=== PATIENT | male | born 1950 | race Caucasian/White ===

== ENCOUNTER 2018-04-10 10:38 | Emergency (ER) | payer OTHER ==
[2018-04-10 10:44] VITALS: BMI 29.6
[2018-04-10 10:47] VITALS: RESP 18
[2018-04-10] MEDS ORDERED: Albuterol-Ipratrop 3 mg / 0.5 (3 ml) UD ONE (10:58)
[2018-04-10] MEDS ORDERED: Moxifloxacin IV 400mg/250ml NS 400 MG/250 ML BAG IV STA (11:11)
[2018-04-10] MEDS ORDERED: Sodium Chloride 0.9% 1,000 ML IV ONE (11:11)
--- NOTE | 2018-04-10 11:11 | C.PDOC ---
History Of Present Illness 68 year old male presents to the ED for evaluation of worsening productive cough, congestion, fever (subjective), and shortness of breath for 1 week. Patient reports his symptoms are worse at night and general malaise. Admits to completing a Z-brandon on 03/30/18 but symptoms still persist. Denies chills, nausea, vomiting, diarrhea, abdominal pain, and any other associated symptoms. WORSENING COUGH X 1 WEEK. S/P ZPAK COMPLETED 04/09 BUT STILL PERSIST SX. +PROD COUGH, CHEST HERMELINDA, SOB WORSE @ NIGHT. +SUBJ FEVER. NO NV. +GEN MALAISE EXAM MOD DIST NONTOXIC S/P NEB HEENT NEG LUNGS B/L RHONCHI TO MID BASE +RETRACTION SPEAKING FULL SENTENCES CV IRREG REG NO EDEMA REMAINDER NEG Time Seen by Provider: 04/10/18 10:52 Chief Complaint (Nursing): Cough, Cold, Congestion History Per: Patient History/Exam Limitations: no limitations Onset/Duration Of Symptoms: Days Current Symptoms Are (Timing): Still Present Past Medical History Reviewed: Historical Data, Nursing Documentation, Vital Signs Vital Signs: Last Vital Signs Temp 99.6 F 04/10/18 10:44 Pulse 96 H 04/10/18 10:44 Resp 18 04/10/18 10:44 BP 110/69 04/10/18 10:44 Pulse Ox 93 L 04/10/18 10:44 - Medical History PMH: Diabetes, HTN, Hypercholesterolemia - [facility] Procedures SUTURE EXT EAR LAC (05/31/14) TETANUS TOXOID ADMINIST (05/31/14) Family History: States: Unknown Family Hx - Social History Hx Tobacco Use: No Hx Alcohol Use: No Hx Substance Use: No - Immunization History Hx Tetanus Toxoid Vaccination: Yes (05/31/2014) Hx Influenza Vaccination: Yes Hx Pneumococcal Vaccination: No Review Of Systems Except As Marked, All Systems Reviewed And Found Negative. Constitutional: Positive for: Fever (subjective.). Negative for: Chills ENT: Positive for: Nose Congestion Respiratory: Positive for: Cough (productive.), Shortness of Breath Gastrointestinal: Negative for: Nausea, Vomiting, Abdominal Pain, Diarrhea Physical Exam - Physical Exam Appears: Non-toxic, Other (moderate distress.) Skin: Normal Color, Warm, Dry Head: Atraumatic, Normacephalic Eye(s): bilateral: Normal Inspection Oral Mucosa: Moist Throat: Normal, No Erythema Neck: Normal ROM, Supple Chest: Symmetrical, No Deformity Cardiovascular: Murmur, Other (CV: irregular regular. ) Respiratory: Accessory Muscle Use, No Rales, Rhonchi (bilateral to the mid base.), No Wheezing Gastrointestinal/Abdominal: Normal Exam, Soft, No Tenderness Extremity: No Pedal Edema Neurological/Psych: Oriented x3, Normal Speech, Other (speaking full sentences.) ED Course And Treatment - Laboratory Results Result Diagrams: 04/10/18 11:31 04/10/18 11:31 ECG: Interpreted By Me ECG Rhythm: Sinus Rhythm Interpretation Of ECG: CHANGED FROM 05/2017. sinus rhythm. right bundle. Rate: 87 bpm Rate From EC O2 Sat by Pulse Oximetry: 93 (nasal canula) Pulse Ox Interpretation: Abnormal - Other Rad CXR X-Ray: Viewed By Me, Read By Radiologist Interpretation: FINDINGS: LINES AND TUBES: None. LUNG AND PLEURA: The lungs are well inflated and clear. No pleural effusion or pneumothorax. HEART AND MEDIASTINUM: The heart is not enlarged. Atherosclerotic aortic arch calcific ations are present. The hilar and mediastinal contours are within normal limits. SKELETAL STRUCTURES: The bony structures are within normal limits for the patient's age. VISUALIZED UPPER ABDOMEN: Normal. OTHER FINDINGS: None. IMPRESSION: No active pulmonary disease. Progress - Re-Evaluation Re-evaluation Note: 04/10/18 12:19 SP NEB PS FEELS MUCH BETTER, DOES NOT WANT ADMISSION. ABX IN PROGRESS - Data Reviewed Data Reviewed: Lab, Diagnostic imaging, EKG, Old records Medical Decision Making Medical Decision Making: Plan: -CXR -Blood sent. -Toradol -Moxifloxacin -Blood culture -Urine culture -Urinalysis Disposition Counseled Patient/Family Regarding: Studies Performed, Diagnosis, Need For Followup, Rx Given - Disposition Referrals: YOUR,PMD [Other] Disposition: HOME/ ROUTINE Disposition Time: 12:20 Condition: IMPROVED Prescriptions: Albuterol HFA [Ventolin HFA 90 mcg/actuation (8 g)] 1 puff IH Q4 #1 inhaler Benzonatate [Tessalon Perles] 200 mg PO TID PRN #15 sgl PRN Reason: Cough Moxifloxacin [Avelox] 400 mg PO DAILY #6 tab Instructions: Acute Bronchitis, Adult (DC) Forms: [facility] (Malay) - Clinical Impression Clinical Impression: Bronchitis - Scribe Statement The provider has reviewed the documentation as recorded by the Scribe (Eugenia Arreola) Provider Attestation: All medical record entries made by the Scribe were at my direction and personally dictated by me. I have reviewed the chart and agree that the record accurately reflects my personal performance of the history, physical exam, medical decision making, and the department course for this patient. I have also personally directed, reviewed, and agree with the discharge instructions and disposition.
[2018-04-10] MEDS ORDERED: Sodium Chloride 0.9% 1,000 ML ONE (11:22)
[2018-04-10] MEDS ORDERED: Moxifloxacin IV 400mg/250ml NS 400 MG/250 ML BAG IVPB ONE (11:22)
[2018-04-10 11:36] LABS: VENOUS BLOOD GAS BASE EXCESS 0.6 mmol/L (0.0-2.0); VENOUS BLOOD GAS PCO2 47 mmHg (40-60); VENOUS BLOOD GAS PO2 35 mm/Hg (30-55); VENOUS BLOOD PH 7.36 (7.32-7.43)
--- NOTE | 2018-04-10 11:50 | RAD ---
HISTORY: Evaluate for pneumonia COMPARISON: 05/06/2015. TECHNIQUE: Chest PA and lateral FINDINGS: LINES AND TUBES: None. LUNG AND PLEURA: The lungs are well inflated and clear. No pleural effusion or pneumothorax. HEART AND MEDIASTINUM: The heart is not enlarged. Atherosclerotic aortic arch calcifications are present. The hilar and mediastinal contours are within normal limits. SKELETAL STRUCTURES: The bony structures are within normal limits for the patient's age. VISUALIZED UPPER ABDOMEN: Normal. OTHER FINDINGS: None. IMPRESSION: No active pulmonary disease.
[2018-04-10 11:54] LABS: BASO % 0.2 % (0.0-2.0); EOS % 0.4 % (0.0-4.0); HEMOGLOBIN 13.8 g/dL (12.0-18.0); LYMPH # 3.5 K/uL (1.0-4.3); LYMPH % 28.5 % (20.0-40.0); MEAN CELL VOLUME 90.7 fL (80.0-94.0); MEAN CORPUSCULAR HEMOGLOBIN 29.7 pg (27.0-31.0); MEAN CORPUSCULAR HGB CONC 32.8 g/dL (33.0-37.0); MEAN PLATELET VOLUME 8.5 fL (7.2-11.7); MONO # 0.9 K/uL (0.0-0.8); MONO % 7.6 % (0.0-10.0); NEUT # 7.7 K/uL (1.8-7.0); NEUT % 63.3 % (50.0-75.0); RBC 4.63 Mil/uL (4.40-5.90); RED CELL DISTRIBUTION WIDTH 13.9 % (11.5-14.5); WHITE BLOOD COUNT 12.2 K/uL (4.8-10.8)
[2018-04-10 11:54] LABS: INR 1.2; PROTHROMBIN TIME 12.9 SECONDS (9.7-12.2)
[2018-04-10 11:57] LABS: ALB/GLOB RATIO 1.1 (1.0-2.1); ALBUMIN 3.9 g/dL (3.5-5.0); ALT/SGPT 24 U/L (21-72); AST/SGOT 20 U/L (17-59); BLOOD UREA NITROGEN 29 mg/dL (9-20); GFR NON-AFRICAN AMERICAN > 60
[2018-04-10 11:58] VITALS: BP 136/79; PULSE 89; TEMP 98
[2018-04-10 12:09] VITALS: O2SAT 93
[2018-04-10 12:09] LABS: B-TYPE NATRIURETIC PEPTIDE 48.3 pg/mL (0-900)
[2018-04-10 12:16] LABS: SQUAMOUS EPITHIAL < 1 /hpf (0-5); URINE BACTERIA RARE (<OCC); URINE BILIRUBIN NEGATIVE (NEGATIVE); URINE BLOOD 1+ (NEGATIVE); URINE CLARITY Hazy (Clear); URINE COLOR Amber (YELLOW); URINE GLUCOSE (UA) 3+ mg/dL (Normal); URINE LEUKOCYTE ESTERASE NEG Leu/uL (Negative); URINE PROTEIN 1+ mg/dL (NEGATIVE); URINE UROBILINOGEN NORMAL mg/dL (0.2-1.0)
--- NOTE | 2018-04-11 12:16 | CARD ---
APPROVED REPORT Date of service: 04/10/2018 EKG Measurement Heart [id number] <Conclusion> Normal sinus rhythm Right bundle branch block Abnormal ECG
== END 2018-04-10 12:39 | disposition home or self-care (01) ==
LOC: C.ER 10:38
DX: J40 Bronchitis, not specified as acute or chronic (principal)
CPT/HCPCS: 71046; 80053; 81001; 82803; 83735; 83880; 84100; 84484; 85025; 85610; 85730; 87040; 87086; 87804; 93005; 96374; 96375; 99284; J1885; J2280; J7030

== ENCOUNTER 2018-07-22 07:04 | Outpatient (CLI) | payer OTHER | END 2018-07-22 07:05 | disposition home or self-care (01) | LOC: C.LAB 07:04 | DX: E11.40 Type 2 diabetes mellitus with diabetic neuropathy, unspecified (principal); G25.0 Essential tremor; Z79.4 Long term (current) use of insulin ==